=== PATIENT | female | born 1950 | race Caucasian/White ===

== ENCOUNTER 2020-09-12 19:15 | Emergency (ER) | payer OTHER, MEDICARE ==
[~2020-09-12] VITALS: Ht 152.4 cm; Wt 63.5 kg
[2020-09-12] MEDS ORDERED: IOHEXOL 300 MG/ML 75 ML VIAL. IV ONE (19:45)
[2020-09-12 20:21] LABS: BASO % 1 % (0-3); EOS % 0 % (0-3); HEMATOCRIT 39.1 % (36.0-47.0); HEMOGLOBIN 13.1 g/dL (12.0-15.5); LYMPH % 26 % (24-48); MEAN CORPUSCULAR HEMOGLOBIN 29 pg (25-35); MEAN CORPUSCULAR HGB CONC 34 g/dL (31-37); MEAN CORPUSCULAR VOLUME 85 fL (79-100); MONO # 0.6 x10^3/uL (0.0-1.1); MONO % 8 % (0-9); NEUT % 65 % (31-73); PLATELET COUNT 335 x10^3/uL (140-400); RED BLOOD COUNT 4.57 x10^6/uL (3.50-5.40); RED CELL DISTRIBUTION WIDTH 13.7 % (11.5-14.5); WHITE BLOOD COUNT 7.7 x10^3/uL (4.0-11.0)
[2020-09-12 20:29] LABS: CALCIUM 9.1 mg/dL (8.5-10.1); CREATININE 0.7 mg/dL (0.6-1.0); GFR 83.2; POTASSIUM 3.9 mmol/L (3.5-5.1)
[2020-09-12 20:30] LABS: CLARITY,URINE CLEAR
[2020-09-12 20:31] LABS: BILIRUBIN,URINE NEG (NEG); COLOR,URINE STRAW; GLUCOSE,URINE NEG (NEG); NITRITE,URINE NEG (NEG); RBC,URINE OCC /HPF (0-2); UROBILINOGEN,URINE 0.2 mg/dL (0.2 mg/dL)
[2020-09-12 20:32] LABS: BACTERIA,URINE FEW /HPF (0-FEW); SQUAMOUS EPITHELIAL CELL,UR OCC /LPF; WBC,URINE OCC /HPF (0-4)
[2020-09-12 20:44] LABS: ALBUMIN 3.9 g/dL (3.4-5.0); ALBUMIN/GLOBULIN RATIO 1.1 (1.0-1.7); TOTAL BILIRUBIN 0.5 mg/dL (0.2-1.0); TOTAL PROTEIN 7.6 g/dL (6.4-8.2)
[2020-09-12] MEDS ORDERED: IV RINGERS SOLUTION,LACTATED 1,000 ML IV ONE (21:15)
--- NOTE | 2020-09-12 21:21 | RAD ---
INDICATION: Reason: left lower quadrant pain Hx: Lower mass Omni 300 75cc / Spl. Instructions: / Hi story: . COMPARISON: None. TECHNIQUE: Axial CT images obtained through the abdomen and pelvis with contrast. One or more of the following individualized dose reduction techniques were utilized for this examinat ion: 1. Automated exposure control; 2. Adjustment of the mA and/or kV according to patient size; 3 . Use of iterative reconstruction technique. FINDINGS: Small hiatal hernia. Atherosclerotic disease throughout the abdominal aorta. This includes both hard and soft plaque throughout. No intrahepatic bile duct dilation. Postcholecystectomy changes. No peripancreatic fluid collection. Spleen is unremarkable. Excreted contrast in the bilateral renal pelvis without significant hydronephrosis. Urinary bladder is largely decompressed with some contrast seen within. Mass effect on the urinary bl adder from a large heterogenous mass filling the pelvis and extending in the lower abdomen. This mass measures up to 193 x 135 x 171 mm and is of mixed density with some low density in some high density component. There is some haziness the fat within the pelvis adjacent to the sigmoid colon and rectal region with areas of nodularity in the area. There is also some edema and nodularity at left pericolic color reg ion. This masslike structure also abuts the cecum and causes mass effect on it. There is a rim of hig h density along the anterior aspect of the mass measuring up to about 13 mm in thickness which could be secondary to some hemorrhage along the periphery. Degenerative changes of the spine. Multilevel central canal and neural foraminal stenosis. IMPRESSION: * Within the pelvis and lower abdomen there is a large heterogenous masslike structure identified wh ich appears mixed density with predominant high density with some low density component within. Given the reported history of endometrial carcinoma status post removal the most likely cause would includ e tumor recurrence with a component of hemorrhage likely contributing. Is difficult to tell how much of this structure is secondary to underlying mass and how much is secondary to hemorrhage given the l ack of prior. Another possible workup option would include pelvic MRI with and without contrast if fu rther information is needed. * Additionally there is some nodularity and fluid seen posterior to this mass and adjacent to the re ctosigmoid region. There is some prominence the wall of the rectosigmoid region at this location. Thi s could be secondary to some implants within the area related to the pelvic mass or some blood at the site with other causes such as inflammation to the rectosigmoid region or a rectosigmoid lesion not excluded given this finding. * Along the anterior aspect of this masslike structure there is some high density component seen whi ch could be from some blood tracking along its anterior aspect. Report called to the ER at 9:10 PM on date of exam Electronically signed by: Heraclio Salter MD (09/12/2020 9:18 PM) [id number]
[2020-09-12 21:45] VITALS: BP 141/76
--- NOTE | 2020-09-12 21:50 | PHYS DOC ---
Past History Past Medical History: Other Additional Past Medical Histor: SEASONAL ALLERGIES Past Surgical History: Cholecystectomy, , Hysterectomy, Tonsillectomy, Other Additional Past Surgical Histo: WISDOM TEETH Alcohol Use: Occasionally Adult General Chief Complaint Chief Complaint: ABDOMINAL PAIN HPI HPI Patient is a 70-year-old female with a past medical history significant for endometrial cancer who presents to the emergency department via the urgent care for left lower quadrant abdominal pain and abnormal CT with mass in left lower quadrant. Patient states she has had some left lower quadrant fullness and tenderness for several weeks now. States that she went to an urgent care today, had a CT scan and a mass was seen on CT and was directed to the ED. States that she has intermittent pain in the area, 5 out of 10, dull and achy in nature and feels like there is something they are pressing on her bladder and bowels. De nies any recent traumas, illnesses, fevers, chest pain, shortness of breath, nausea, vomiting, diarrhea, dysuria, hematuria or blood in the stool. Review of Systems Review of Systems Review of systems otherwise unremarkable except what noted in HPI Current Medications Current Medications Current Medications Medications (Trade) Dose Ordered Sig/Cassy Start Time Stop Time Status Last Admin Dose Admin Iohexol (Omnipaque 300 Mg/ml) 75 ml 1X ONCE 09/12/20 19:45 09/12/20 19:59 DC 09/12/20 20:38 75 ML Lactated Ringer's 1,000 ml @ 1,000 mls/hr 1X ONCE 09/12/20 21:15 09/12/20 22:14 09/12/20 21:19 1,000 MLS/HR Allergies Allergies Allergies Coded Allergies Type Severity Reaction Last Updated Verified Sulfa (Sulfonamide Antibiotics) Allergy Unknown 09/12/20 Yes Physical Exam Physical Exam Constitutional: Well developed, well nourished, no acute distress, non-toxic appearance. [] HENT: Normocephalic, atraumatic, oropharynx moist, no oral exudates, nose normal. [] Eyes: conjunctiva normal, no discharge. [] Neck: Normal range of motion, Cardiovascular:Heart rate regular rhythm, no murmur [] Lungs & Thorax: Bilateral breath sounds clear to auscultation [] Abdomen: Bowel sounds normal, obvious firm mass in left lower quadrant that is tender to palpation. The rest of the abdominal exam with no tenderness, rebound Skin: Warm, dry, no erythema, no rash. [] Back: No tenderness, no CVA tenderness. [] Extremities: No tenderness, no cyanosis, no clubbing, ROM intact, no edema. [] Neurologic: Alert and oriented X 3, normal motor function, normal sensory function, no focal deficits noted. [] Psychologic: Affect normal, judgement normal, mood normal. [] Current Patient Data Vital Signs Vital Signs Date Time Temp Pulse Resp B/P (MAP) Pulse Ox O2 Delivery O2 Flow Rate FiO2 09/12/20 19:25 98.2 84 18 148/70 (96) 96 Room Air Lab Results Laboratory Tests Test 09/12/20 19:34 09/12/20 20:00 Urine Collection Type Unknown Urine Color Straw Urine Clarity Clear Urine pH 5.5 Urine Specific [place] <=1.005 Urine Protein Neg (NEG-TRACE) Urine Glucose (UA) Neg mg/dL (NEG) Urine Ketones (Stick) Neg mg/dL (NEG) Urine Blood Small (NEG) Urine Nitrite Neg (NEG) Urine Bilirubin Neg (NEG) Urine Urobilinogen Dipstick 0.2 mg/dL (0.2 mg/dL) Urine Leukocyte Esterase Neg (NEG) Urine RBC Occ /HPF (0-2) Urine WBC Occ /HPF (0-4) Urine Squamous Epithelial Cells Occ /LPF Urine Bacteria Few /HPF (0-FEW) White Blood Count 7.7 x10^3/uL (4.0-11.0) Red Blood Count 4.57 x10^6/uL (3.50-5.40) Hemoglobin 13.1 g/dL (12.0-15.5) Hematocrit 39.1 % (36.0-47.0) Mean Corpuscular Volume 85 fL (79-100) Mean Corpuscular Hemoglobin 29 pg (25-35) Mean Corpuscular Hemoglobin Concent 34 g/dL (31-37) Red Cell Distribution Width 13.7 % (11.5-14.5) Platelet Count 335 x10^3/uL (140-400) Neutrophils (%) (Auto) 65 % (31-73) Lymphocytes (%) (Auto) 26 % (24-48) Monocytes (%) (Auto) 8 % (0-9) Eosinophils (%) (Auto) 0 % (0-3) Basophils (%) (Auto) 1 % (0-3) Neutrophils # (Auto) 5.0 x10^3uL (1.8-7.7) Lymphocytes # (Auto) 2.0 x10^3/uL (1.0-4.8) Monocytes # (Auto) 0.6 x10^3/uL (0.0-1.1) Eosinophils # (Auto) 0.0 x10^3/uL (0.0-0.7) Basophils # (Auto) 0.0 x10^3/uL (0.0-0.2) Sodium Level 138 mmol/L (136-145) Potassium Level 3.9 mmol/L (3.5-5.1) Chloride Level 102 mmol/L (98-107) Carbon Dioxide Level 26 mmol/L (21-32) Anion Gap 10 (6-14) Blood Urea Nitrogen 13 mg/dL (7-20) Creatinine 0.7 mg/dL (0.6-1.0) Estimated GFR (Cockcroft-Gault) 83.2 BUN/Creatinine Ratio 19 (6-20) Glucose Level 109 mg/dL (70-99) H Lactic Acid Level 0.7 mmol/L (0.4-2.0) Calcium Level 9.1 mg/dL (8.5-10.1) Total Bilirubin 0.5 mg/dL (0.2-1.0) Aspartate Amino Transferase (AST) 14 U/L (15-37) L Alanine Aminotransferase (ALT) 17 U/L (14-59) Alkaline Phosphatase 56 U/L (46-116) Total Protein 7.6 g/dL (6.4-8.2) Albumin 3.9 g/dL (3.4-5.0) Albumin/Globulin Ratio 1.1 (1.0-1.7) Lipase 63 U/L (73-393) L EKG EKG [] Radiology/Procedures Radiology/Procedures [] Heart Score Risk Factors: Risk Factors: DM, Current or recent (<one month) smoker, HTN, HLP, family history of CAD, obesity. Risk Scores: Risk Factors: DM, Current or recent (<one month) smoker, HTN, HLP, family history of CAD, obesity. Course & Med Decision Making Course & Med Decision Making Patient is a 70-year-old female presents with left lower quadrant pain and abnormal CT showing mass in left lower quadrant Vital signs not concerning. Physical exam noted above. Patient offered pain and/or nausea medicine but stated right now she was doing okay and would wait. Laboratory analysis not concerning. CT noted above showing approximately 20 cm mass in the left lower quadrant with some debris in it suggesting fluid and/or hemorrhage. Called [facility] and talk to the Payroll And Benefits Analyst Onc physician, Dr. Serene Frias. Discussed history, labs and imaging. She recommended that since patient's vitals were good, hemoglobin and other labs were good that she would be safe to discharge home and follow-up with her first thing in the morning. Gave contact information and advised patient call her office first thing in the morning to set up initial evaluation, treatment and further imaging. Discussed these findings with the family who verbalized understanding, were very grateful and agreed with plan of discharge and follow-up. [] Dragon Disclaimer Dragon Disclaimer This electronic medical record was generated, in whole or in part, using a voice recognition dictation system. Departure Departure: Impression: Primary Impression: Abdominal pain Additional Impression: Abdominal mass Disposition: 01 DC HOME SELF CARE/HOMELESS Condition: STABLE Referrals: ARJUN CASILLAS DO (PCP) Patient Instructions: Abdominal Pain Additional Instructions: Please read the attached information. After talking with the gynecological/oncology physician over at [facility]. Serene Frias. She advised that she call her office first thing in the morning at [phone] to set up an appointment as soon as possible for further evaluation, treatment and imaging. Problem Qualifiers WALT ESPINOZA MD Sep 12, 2020 21:50
== END 2020-09-12 21:59 | disposition home or self-care (01) ==
LOC: ER 19:15
DX: R10.32 Left lower quadrant pain (principal); R19.04 Left lower quadrant abdominal swelling, mass and lump; Z85.89 Personal history of malignant neoplasm of other organs and systems; Z90.49 Acquired absence of other specified parts of digestive tract; Z90.710 Acquired absence of both cervix and uterus; Z98.890 Other specified postprocedural states; Z88.2 Allergy status to sulfonamides
CPT/HCPCS: 36415; 74177; 80053; 81001; 83605; 83690; 85025; 96360; 99285; J7120; Q9967

== ENCOUNTER → 2021-02-16 | Day surgery (SDC) | payer OTHER ==
[~2021-02-16] MED LIST: ASPI325T8 PO; IPRATRPIUM/ALBUTEROL 0.5/2.5MG 3 ML NEBU. NEB PRN; IV RINGERS SOLUTION,LACTATED 1,000 ML IV SCH; LIDOCAINE 2% PF 5 ML VIAL. ONE; MIDAZOLAM HCL PF 2 MG/2 ML VIAL. IV ONE; MULT-245 PO; ONDANSETRON PF 4 MG/2 ML VIAL. IV PRN; PROPOFOL 10,000 MCG/ML (20ML) VIAL IV ONE; ROSU5TAB8 PO
[2021-02-16 12:16] VITALS: BP 159/60
--- NOTE | 2021-02-20 14:09 | PATHOLOGY ---
[facility] Accession Number: [id number] . 01 Material submitted: . PART A: cecum - CECAL POLYP BIOPSY PART B: colon - TRANSVERSE COLON POLYP. Modifiers: transverse PART C: colon - DESCENDING COLON POLYP. Modifiers: descending PART D: sigmoid colon - SIGMOID COLON POLYP . 01 Clinical history: . SCREENING COLONOSCOPY COLONOSCOPY WITH POLYPECTOMY COLONOSCOPY REF#[id number] . 02 Diagnosis: A. Colon biopsies, cecal polyps: - Tubular adenomas. . B. Colon biopsy, transverse colon polyp: - Hyperplastic polyp. . C. Colon biopsy, descending colon polyp: - Tubular adenoma. . D. Colon biopsies, sigmoid colon polyps: - Tubular adenomas. (JPM:kyaley; 02/20/2021) [facility] 02/20/2021 1144 Local . 02 Comment: There is no high grade dysplasia or evidence of malignancy. (JPM:kayley; 02/20/2021) . 02 Electronically signed: . Lennox Manjarrez MD, Pathologist NPI- [id number] . 01 Gross description: . A. Received in formalin labeled "Cortés, Kianna and cecal polyp". Received are 2 allen-brown soft tissue fragments ranging from 0.2-0.3 cm. The specimen is entirely submitted in cassette A1. . B. Received in formalin labeled "Cortés, Kianna and transverse colon polyp". Received is a allen-brown soft tissue fragment measuring 0.5 x 0.3 x 0.3 cm. The specimen is entirely submitted in cassette B1. . C. Received in formalin labeled "Cortés, Kianna and descending colon". Received is a allen-brown soft tissue fragment measuring 0.3 x 0.3 x 0.2 cm. The specimen is entirely submitted in cassette C1. . D. Received in formalin labeled "Cortés, Kianna and sigmoid colon polyps". Received are 3 allen-brown soft tissue fragments ranging from 0.3-0.7 cm. The specimen is entirely submitted in cassette D1.([facility]; 02/19/2021) [facility] 02/20/2021 1143 Local . 02 Pathologist provided ICD-10: D12.0, K63.5, D12.4, D12.5 . 02 CPT . 939957, 839377, [id number], [id number] Specimen Comment: A courtesy copy of this report has been sent to [phone] Specimen Comment: Report sent to / DR CASILLAS Performed at: 01 [facility] [address], [place] [id number] MD Magdaleno Anaya MD Phone: [phone] Performed at: 02 [facility] [address] [place], [place] [id number] MD Lennox Manjarrez MD Phone: [phone]
== END | disposition home or self-care (01) ==
LOC: SURG 09:44
PROVIDERS: ATTEND Internal Medicine Gastroenterology
DX: Z12.11 Encounter for screening for malignant neoplasm of colon (principal); D12.0 Benign neoplasm of cecum; D12.4 Benign neoplasm of descending colon; D12.5 Benign neoplasm of sigmoid colon; E78.00 Pure hypercholesterolemia, unspecified; M19.90 Unspecified osteoarthritis, unspecified site; Z88.2 Allergy status to sulfonamides; Z79.899 Other long term (current) drug therapy; Z79.82 Long term (current) use of aspirin; Z85.89 Personal history of malignant neoplasm of other organs and systems; Z90.49 Acquired absence of other specified parts of digestive tract; Z90.710 Acquired absence of both cervix and uterus; Z98.890 Other specified postprocedural states
CPT/HCPCS: 45380; 45381; 45385; 88305; J2001; J2704; J7120